=== PATIENT | male | born 1940 | race Caucasian/White ===

== ENCOUNTER 2017-01-26 10:48 | Emergency (ER) | payer MEDICARE, OTHER ==
[~2017-01-26] VITALS: Ht 154.9 cm; Wt 81.8 kg
[~2017-01-26 10:48] MED LIST: ASPI-664 PO; HYDR12.58 PO; IMO2 PO; NAPR375T PO; PANT40TA4 PO; PIOG30TA26 PO; QUESTRAN PO; SIMV20TA2 PO
[2017-01-26 10:51] VITALS: Ht 154.9 cm; Wt 81.8 kg
[2017-01-26] MEDS ORDERED: CLOT30CR24 TOP (11:37)
[2017-01-26] MEDS ORDERED: FLUC150T17 PO (11:37)
--- NOTE | 2017-01-26 15:09 | ERD ---
ER Documentation Chief Complaint Chief Complaint RASHES /ITCHINESS GROEIN AREAS HPI 76-year-old male complaining of itchiness around groin area 2 months. Patient states that he has been on antibiotics with no alleviation of symptoms. Describes as a dry-like rash recent skin which is very itchy in nature. Has never had this before. Denies any dysuria or penile discharge. ROS All systems reviewed and are negative except as per history of present illness. Medications Home Meds Active Scripts Fluconazole* (Diflucan*) 150 Mg Tablet, 150 MG PO ONCE, #1 TAB Prov:NELLY SANCHEZ PA-C 01/26/17 Clotrimazole* (Clotrimazole* AF) 1% - 30 Gm Cream.gm., 1 APPLIC TOP BID for 14 Days, TUB Prov:NELLY SANCHEZ PA-C 01/26/17 Hydrochlorothiazide* (Hydrochlorothiazide*) 12.5 Mg Tablet, 12.5 MG PO DAILY for 30 Days, TAB Prov:ERIKA MART S. 05/25/14 Loperamide Hcl* (Loperamide Hcl*) 2 Mg Cap, 2 MG PO QID Y for DIARRHEA for 30 Days, CAP 1 Refill Prov:ERIKA MART S. 05/25/14 Cholestyramine* (Cholestyramine* Packet) 1 Pkt Susp, 1 PKT PO TID for 30 Days, PACKET 1 Refill Prov:ERIKA MART S. 05/25/14 Reported Medications Naproxen* (Naprosyn*) 375 Mg Tablet, 375 MG PO DAILY Y for PAIN AND/OR INFLAMMATION, TAB 05/18/14 Simvastatin (Simvastatin) 20 Mg Tablet, 20 MG PO HS, TAB 05/18/14 Pantoprazole* (Pantoprazole*) 40 Mg Tablet.dr, 40 MG PO DAILY, TAB 05/18/14 Pioglitazone Hcl* (Pioglitazone Hcl*) 30 Mg Tablet, 30 MG PO DAILY, TAB 05/18/14 Aspirin* (Aspirin* EC) 81 Mg Tablet.dr, 81 MG PO DAILY, TAB 05/18/14 Allergies Allergies: Coded Allergies: No Known Drug Allergies (Verified Allergy, Mild, 05/18/14) PMhx/Soc History of Surgery: Yes (LAPAROSCOPY, CHOLECYSTECTOMY 05/2012) Anesthesia Reaction: No Hx Neurological Disorder: No Hx Respiratory Disorders: No Hx Cardiac Disorders: Yes (HTN) Hx Psychiatric Problems: No Hx Miscellaneous Medical Probl: Yes (DM) Hx Alcohol Use: No Hx Substance Use: No Hx Tobacco Use: No Smoking Status: Never smoker Physical Exam Vitals Vital Signs Date Time Temp Pulse Resp B/P Pulse Ox O2 Delivery O2 Flow Rate FiO2 01/26/17 10:51 97.7 54 19 186/75 95 Physical Exam GENERAL: The patient is well-appearing, well-nourished, in no acute distress CHEST: Clear to auscultation bilaterally. There are no rales, wheezes or rhonchi. HEART: Regular rate and rhythm. No murmurs, clicks, rubs or gallops. No S3 or S4. ABDOMEN:Soft, nontender and nondistended. Good bowel sounds. No rebound or guarding. No gross peritonitis. No gross organomegaly or masses. No Camara sign or McBurney point tenderness. SKIN: Dry rash around genitalia with scaling. No open sores. : No testicular tenderness or swelling. No penile lesions or open sores. Procedures/MDM MDM: 86-year-old male complaining of dry rash around genital area. Patient appears to have fungal infection. I have low suspicion for bacterial infection I have low suspicion for STD. I have low suspicion for abnormality. Patient will be treated with topical cream and 1 pill of Diflucan. Patient is told symptoms change or worsen to return to the ER. All questions answered at discharge. Departure Diagnosis: Primary Impression: Tinea cruris Condition: Stable Patient Instructions: Tinea Cruris, Jock Itch Additional Instructions: FOLLOW UP WITH YOUR PRIMARY CARE PHYSICIAN TOMORROW.Return to this facility if you are not improving as expected. NELLY SANCHEZ PA-C Jan 26, 2017 15:09
== END 2017-01-26 11:45 | disposition home or self-care (01) ==
LOC: FTE 10:48
DX: B35.6 Tinea cruris (principal); E11.9 Type 2 diabetes mellitus without complications; I10 Essential (primary) hypertension; Z79.82 Long term (current) use of aspirin
CPT/HCPCS: 99283